=== PATIENT | female | born 2000 | race Caucasian/White ===

== ENCOUNTER 2021-08-25 22:19 | Observation (INO) | payer OTHER, MEDICAID ==
[2021-08-25] MEDS ORDERED: LORazepam 2 MG/ML VIAL IV ONE (22:41)
[2021-08-25] MEDS ORDERED: BUTALB/ACETAMINOPHEN/CAFFEINE TAB PO ONE (22:41)
[2021-08-25] MEDS ORDERED: SODIUM CHLORIDE 0.9% 1000 ML 1,000 ML IV ONE ×2 (22:41→22:42)
--- NOTE | 2021-08-25 22:46 | Emergency Department Report ---
HPI - General Chief Complaint: Headache Time Seen by Provider: 08/25/21 22:34 - HPI HPI: Room 20 Patient is a 21-year-old female present with a chief complaint of headache. Patient states her headache came on last night in the frontal region while at r est. Patient states that she took Tylenol but has not helped. Patient states she had episode of nausea vomiting. Patient states approximate 1 hour prior to arrival her hands began to "lock up." Patient denies dysuria or cough. Patient denies any preceding trauma. Patient currently gives her headache a score of 8/10 ED Past Medical Hx - Past Medical History Previous Medical History?: Yes Hx Asthma: Yes - Surgical History Past Surgical History?: No - Family History Family history: no significant - Social History Smoking Status: Never Smoker Substance Use Type: Alcohol (Rarely), Marijuana - Medications Home Medications: Home Medications Medication Instructions Recorded Confirmed Last Taken Type Cefuroxime Axetil [Ceftin] 500 mg PO Q12H #14 tablet 10/18/15 Unknown Rx HYDROcodone/APAP 5-325 [[place] 1 each PO Q6HR PRN #10 tablet 10/18/15 Unknown Rx 5/325] ED Review of Systems ROS: Stated complaint: HEADACHE Other details as noted in HPI Constitutional: denies: fever Eyes: denies: eye pain ENT: denies: throat pain Respiratory: no symptoms reported Cardiovascular: denies: chest pain Endocrine: no symptoms reported Gastrointestinal: nausea, vomiting Genitourinary: denies: dysuria Musculoskeletal: denies: back pain Neurological: headache Physical Exam - Physical Exam Vital Signs: Vital Signs 08/25/21 22:22 Temperature 98.0 F Pulse Rate 147 H Respiratory 20 Rate Blood Pressure 133/75 O2 Sat by Pulse 96 Oximetry Physical Exam: GENERAL: The patient is well-developed well-nourished female lying on stretcher not appearing to be in acute distress using cell phone. [] HEENT: Normocephalic. Atraumatic. Extraocular motions are intact. Patient has moist mucous membranes. NECK: Supple. Trachea midline CHEST/LUNGS: Clear to auscultation. There is no respiratory distress noted. HEART/CARDIOVASCULAR: Regular. There is tachycardia. There is no gallop rub or murmur. ABDOMEN: Abdomen is soft, nontender. Patient has normal bowel sounds. There is no abdominal distention. SKIN: There is no rash. There is no edema. There is no diaphoresis. NEURO: The patient is awake, alert, and oriented. The patient is cooperative. The patient has no focal neurologic deficits. The patient has normal speech. Cranial nerves II through XII grossly intact. GCS 15 MUSCULOSKELETAL:There is no evidence of acute injury. ED Course Vital Signs 08/25/21 22:22 Temperature 98.0 F Pulse Rate 147 H Respiratory 20 Rate Blood Pressure 133/75 O2 Sat by Pulse 96 Oximetry ED Medical Decision Making - Lab Data Result diagrams: 08/25/21 23:09 08/25/21 23:09 Laboratory Tests 08/25/21 08/25/21 08/25/21 23:09 23:09 23:09 WBC 9.1 RBC 4.53 Hgb 12.3 Hct 37.7 MCV 83 MCH 27 L MCHC 33 RDW 13.7 Plt Count 242 Add Manual Diff Complete Total Counted 100 Seg Neuts % (Manual) 89.0 H Band Neutrophils % 5.0 Lymphocytes % (Manual) 2.0 L Monocytes % (Manual) 4.0 Nucleated RBC % Not Reportable Seg Neutrophils # Man 8.1 H Band Neutrophils # 0.5 Lymphocytes # (Manual) 0.2 L Abs React Lymphs (Man) 0.0 Monocytes # (Manual) 0.4 Eosinophils # (Manual) 0.0 Basophils # (Manual) 0.0 Metamyelocytes # 0.0 Myelocytes # 0.0 Promyelocytes # 0.0 Blast Cells # 0.0 WBC Morphology Not Reportable Hypersegmented Neuts Not Reportable Hyposegmented Neuts Not Reportable Hypogranular Neuts Not Reportable Smudge Cells Not Reportable Toxic Granulation Not Reportable Toxic Vacuolation Not Reportable Dohle Bodies Not Reportable Pelger-Huet Anomaly Not Reportable Annalise Rods Not Reportable Platelet Estimate Consistent w auto Clumped Platelets Not Reportable Plt Clumps, EDTA Not Reportable Large Platelets Not Reportable Giant Platelets Not Reportable Platelet Satelliting Not Reportable Plt Morphology Comment Not Reportable RBC Morphology Normal Dimorphic RBCs Not Reportable Polychromasia Not Reportable Hypochromasia Not Reportable Poikilocytosis Not Reportable Anisocytosis Not Reportable Microcytosis Not Reportable Macrocytosis Not Reportable Spherocytes Not Reportable Pappenheimer Bodies Not Reportable Sickle Cells Not Reportable Target Cells Not Reportable Tear Drop Cells Not Reportable Ovalocytes Not Reportable Helmet Cells Not Reportable Lemon-Twining Bodies Not Reportable [place] Rings Not Reportable [place] Cells Not Reportable Bite Cells Not Reportable Crenated Cell Not Reportable Elliptocytes Not Reportable Acanthocytes (Spur) Not Reportable Rouleaux Not Reportable Hemoglobin C Crystals Not Reportable Schistocytes Not Reportable Malaria parasites Not Reportable Derek Bodies Not Reportable Hem Pathologist Commnt No D-Dimer 1196.97 H Sodium 137 Potassium 3.4 L Chloride 100.8 Carbon Dioxide 17 L Anion Gap 23 BUN 7 Creatinine 0.6 Estimated GFR > 60 BUN/Creatinine Ratio 12 Glucose 116 H Calcium 9.3 Total Bilirubin 0.20 AST 25 ALT 21 Alkaline Phosphatase 88 Total Creatine Kinase 83 CK-MB (CK-2) < 1.0 CK-MB (CK-2) Rel Index 1.2 Troponin T < 0.010 Total Protein 7.8 Albumin 4.1 Albumin/Globulin Ratio 1.1 TSH Free T4 HCG, Qual Urine Color Urine Turbidity Urine pH Ur Specific [place] Urine Protein Urine Glucose (UA) Urine Ketones Urine Blood Urine Nitrite Urine Bilirubin Urine Urobilinogen Ur Leukocyte Esterase Urine WBC (Auto) Urine RBC (Auto) U Epithel Cells (Auto) Urine Bacteria (Auto) Urine Mucus Urine Opiates Screen Urine Methadone Screen Ur Barbiturates Screen Ur Phencyclidine Scrn Ur Amphetamines Screen U Benzodiazepines Scrn Urine Cocaine Screen U Marijuana (THC) Screen Drugs of Abuse Note 08/25/21 08/25/21 08/26/21 23:09 23:09 02:00 WBC RBC Hgb Hct MCV MCH MCHC RDW Plt Count Add Manual Diff Total Counted Seg Neuts % (Manual) Band Neutrophils % Lymphocytes % (Manual) Monocytes % (Manual) Nucleated RBC % Seg Neutrophils # Man Band Neutrophils # Lymphocytes # (Manual) Abs React Lymphs (Man) Monocytes # (Manual) Eosinophils # (Manual) Basophils # (Manual) Metamyelocytes # Myelocytes # Promyelocytes # Blast Cells # WBC Morphology Hypersegmented Neuts Hyposegmented Neuts Hypogranular Neuts Smudge Cells Toxic Granulation Toxic Vacuolation Dohle Bodies Pelger-Huet Anomaly Annalise Rods Platelet Estimate Clumped Platelets Plt Clumps, EDTA Large Platelets Giant Platelets Platelet Satelliting Plt Morphology Comment RBC Morphology Dimorphic RBCs Polychromasia Hypochromasia Poikilocytosis Anisocytosis Microcytosis Macrocytosis Spherocytes Pappenheimer Bodies Sickle Cells Target Cells Tear Drop Cells Ovalocytes Helmet Cells Lemon-Twining Bodies Gary Rings [place] Cells Bite Cells Crenated Cell Elliptocytes Acanthocytes (Spur) Rouleaux Hemoglobin C Crystals Schistocytes Malaria parasites Derek Bodies Hem Pathologist Commnt D-Dimer Sodium Potassium Chloride Carbon Dioxide Anion Gap BUN Creatinine Estimated GFR BUN/Creatinine Ratio Glucose Calcium Total Bilirubin AST ALT Alkaline Phosphatase Total Creatine Kinase CK-MB (CK-2) CK-MB (CK-2) Rel Index Troponin T Total Protein Albumin Albumin/Globulin Ratio TSH 0.278 Free T4 1.39 HCG, Qual Negative Urine Color Yellow Urine Turbidity Slightly-cloudy Urine pH 6.0 Ur Specific [place] 1.032 H Urine Protein <15 mg/dl Urine Glucose (UA) Neg Urine Ketones 80 Urine Blood Neg Urine Nitrite Neg Urine Bilirubin Neg Urine Urobilinogen < 2.0 Ur Leukocyte Esterase Neg Urine WBC (Auto) 2.0 Urine RBC (Auto) 6.0 U Epithel Cells (Auto) 15.0 H Urine Bacteria (Auto) 1+ Urine Mucus Few Urine Opiates Screen Urine Methadone Screen Ur Barbiturates Screen Ur Phencyclidine Scrn Ur Amphetamines Screen U Benzodiazepines Scrn Urine Cocaine Screen U Marijuana (THC) Screen Drugs of Abuse Note 08/26/21 02:00 WBC RBC Hgb Hct MCV MCH MCHC RDW Plt Count Add Manual Diff Total Counted Seg Neuts % (Manual) Band Neutrophils % Lymphocytes % (Manual) Monocytes % (Manual) Nucleated RBC % Seg Neutrophils # Man Band Neutrophils # Lymphocytes # (Manual) Abs React Lymphs (Man) Monocytes # (Manual) Eosinophils # (Manual) Basophils # (Manual) Metamyelocytes # Myelocytes # Promyelocytes # Blast Cells # WBC Morphology Hypersegmented Neuts Hyposegmented Neuts Hypogranular Neuts Smudge Cells Toxic Granulation Toxic Vacuolation Dohle Bodies Pelger-Huet Anomaly Annalise Rods Platelet Estimate Clumped Platelets Plt Clumps, EDTA Large Platelets Giant Platelets Platelet Satelliting Plt Morphology Comment RBC Morphology Dimorphic RBCs Polychromasia Hypochromasia Poikilocytosis Anisocytosis Microcytosis Macrocytosis Spherocytes Pappenheimer Bodies Sickle Cells Target Cells Tear Drop Cells Ovalocytes Helmet Cells Lemon-Twining Bodies Gary Rings [place] Cells Bite Cells Crenated Cell Elliptocytes Acanthocytes (Spur) Rouleaux Hemoglobin C Crystals Schistocytes Malaria parasites Derek Bodies Hem Pathologist Commnt D-Dimer Sodium Potassium Chloride Carbon Dioxide Anion Gap BUN Creatinine Estimated GFR BUN/Creatinine Ratio Glucose Calcium Total Bilirubin AST ALT Alkaline Phosphatase Total Creatine Kinase CK-MB (CK-2) CK-MB (CK-2) Rel Index Troponin T Total Protein Albumin Albumin/Globulin Ratio TSH Free T4 HCG, Qual Urine Color Urine Turbidity Urine pH Ur Specific [place] Urine Protein Urine Glucose (UA) Urine Ketones Urine Blood Urine Nitrite Urine Bilirubin Urine Urobilinogen Ur Leukocyte Esterase Urine WBC (Auto) Urine RBC (Auto) U Epithel Cells (Auto) Urine Bacteria (Auto) Urine Mucus Urine Opiates Screen Presumptive negative Urine Methadone Screen Presumptive negative Ur Barbiturates Screen Presumptive positive Ur Phencyclidine Scrn Presumptive negative Ur Amphetamines Screen Presumptive negative U Benzodiazepines Scrn Presumptive negative Urine Cocaine Screen Presumptive negative U Marijuana (THC) Screen Presumptive positive Drugs of Abuse Note Disclamer - EKG Data -: EKG Interpreted by Oh EKG shows normal: sinus rhythm Rate: tachycardia (1 to 29 bpm) - EKG Data When compared to previous EKG there are: previous EKG unavailable Interpretation: nonspecific ST-T wave nadia - Radiology Data Radiology results: report reviewed (CT head, CTA chest), image reviewed (CT head, CTA chest) [facility] [address] [place] [address] Cat Scan Report Signed Patient: ANA ROSA THACKER MR#: [id number] : 2000 Acct:[id number] Age/Sex: 21 / F ADM Date: 08/25/21 Loc: ED Attending Dr: Ordering Physician: KASSY GORDON MD Date of Service: 08/25/21 Procedure(s): CT head/brain wo con Accession Number(s): [id number] cc: KASSY GORDON MD CT HEAD WITHOUT CONTRAST INDICATION / CLINICAL INFORMATION: Headache. TECHNIQUE: All CT scans at this location are performed using CT dose reduction for ALARA by means of automated exposure control. COMPARISON: None available. FINDINGS: HEMORRHAGE: None. EXTRA-AXIAL SPACES: Normal in size and morphology for the patient's age. VENTRICULAR SYSTEM: Normal in size and morphology for the patient's age. CEREBRAL PARENCHYMA: No significant abnormality. No acute territorial infarct. MIDLINE SHIFT / HERNIATION: None. CEREBELLUM / BRAINSTEM: No significant abnormality. ORBITS: Normal as visualized SOFT TISSUES: No significant abnormality. SKULL: No significant abnormality. PARANASAL SINUSES / MASTOID AIR CELLS: Normal as visualized ADDITIONAL FINDINGS: None. IMPRESSION: 1. No acute intracranial abnormality. Signer Name: Shai Nelson DO Signed: 08/25/2021 11:28 PM Workstation Name: [id number] Transcribed By: SILVIO Dictated By: SHAI NELSON DO Electronically Authenticated By: SHAI NELSON DO Signed Date/Time: 08/25/212327 DD/ 26 TD/TT: Print Cancel [facility] [address] [place] [address] Cat Scan Report Signed Patient: ANA ROSA THACKER MR#: [id number] : 2000 Acct:[id number] Age/Sex: 21 / F ADM Date: 08/25/21 Loc: ED Attending Dr: Ordering Physician: KASSY GORDON MD Date of Service: 08/25/21 Procedure(s): CT angio chest Accession Number(s): [id number] cc: KASSY GORDON MD CTA CHEST WITH CONTRAST INDICATION / CLINICAL INFORMATION: Tachycardia, elevated D-dimer. TECHNIQUE: Axial CT images were obtained through the chest after i njection of 100 cc of Omnipaque 350 IV contrast. 3 plane MIP and/or 3D reconstructions were produced. All CT scans at this location are performed using CT dose reduction for ALARA by means of automated exposure control. COMPARISON: None available. FINDINGS: PULMONARY ARTERIES: No pulmonary emboli. THORACIC AORTA: No significant abnormality. HEART: No significant abnormality. CORONARY ARTERY CALCIFICATION: None. MEDIASTINUM / CLYDE: No significant abnormality. PLEURA: No pleural effusion. No pneumothorax. LUNGS: No acute air space or interstitial disease. ADDITIONAL FINDINGS: None. UPPER ABDOMEN: No acute findings. SKELETAL STRUCTURES: No significant osseous abnormality. IMPRESSION: 1. No CT evidence for pulmonary embolism. 2. No acute findings. Signer Name: Shai Nelson DO Signed: 08/26/2021 1:39 AM Workstation Name: [id number] Transcribed By: SILVIO Dictated By: SHAI NELSON DO Electronically Authenticated By: SHAI NELSON DO Signed Date/Time: 08/26/21138 D D/ 6 TD/TT: Print Cancel - Medical Decision Making Patient persistently tachycardic despite IV fluids without a clear etiology. Will admit the patient to the hospital for further management - Differential Diagnosis Headache, anxiety, hyperthyroidism, dehydration, UTI, Critical care attestation.: If time is entered above; I have spent that time in minutes in the direct care of this critically ill patient, excluding procedure time. ED Disposition Clinical Impression: Tachycardia, Headache Disposition: ADMITTED INPATIENT Is pt being admited?: Yes Does the pt Need Aspirin: No Condition: Fair Time of Disposition: 03:38 (Hospitalist called (Dr Canela))
[2021-08-25 23:26] LABS: Hematocrit 37.7 % (30.3-42.9); Hemoglobin 12.3 gm/dl (10.1-14.3); Mean Corpuscular HGB Conc 33 % (30-34); Mean Corpuscular Volume 83 fl (79-97); Platelet Count 242 K/mm3 (140-440); Red Blood Count 4.53 M/mm3 (3.65-5.03); Red Cell Distribution Width 13.7 % (13.2-15.2)
--- NOTE | 2021-08-25 23:33 | Cat Scan Report ---
CT HEAD WITHOUT CONTRAST INDICATION / CLINICAL INFORMATION: Headache. TECHNIQUE: All CT scans at this location are performed using CT dose reduction for ALARA by means of automated exposure control. COMPARISON: None available. FINDINGS: HEMORRHAGE: None. EXTRA-AXIAL SPACES: Normal in size and morphology for the patient's age. VENTRICULAR SYSTEM: Normal in size and morphology for the patient's age. CEREBRAL PARENCHYMA: No significant abnormality. No acute territorial infarct. MIDLINE SHIFT / HERNIATION: None. CEREBELLUM / BRAINSTEM: No significant abnormality. ORBITS: Normal as visualized SOFT TISSUES: No significant abnormality. SKULL: No significant abnormality. PARANASAL SINUSES / MASTOID AIR CELLS: Normal as visualized ADDITIONAL FINDINGS: None. IMPRESSION: 1. No acute intracranial abnormality. Signer Name: Shai Almeida DO Signed: 08/25/2021 11:28 PM Workstation Name: [id number]
[2021-08-25 23:46] LABS: Alanine Aminotransferase 21 units/L (7-56); Albumin 4.1 g/dL (3.9-5); Blood Urea Nitrogen 7 mg/dL (7-17); Calcium 9.3 mg/dL (8.4-10.2); Hemolysis Index 4
[2021-08-26] LABS: BUN/Creatinine Ratio 12; Creatine Kinase MB < 1.0 ng/mL (0.0-4.0)
[2021-08-26 00:01] LABS: Band Neutrophils # (Manual) 0.5 K/mm3; Platelet Estimate Consistent w Auto; RBC Morphology Normal; Total Cells Counted 100
--- NOTE | 2021-08-26 01:43 | Cat Scan Report ---
CTA CHEST WITH CONTRAST INDICATION / CLINICAL INFORMATION: Tachycardia, elevated D-dimer. TECHNIQUE: Axial CT images were obtained through the chest after injection of 100 cc of Omnipaque 350 IV contrast. 3 plane MIP and/or 3D reconstructions were produced. All CT scans at this location are performed using CT dose reduction for ALARA by means of automated exposure control. COMPARISON: None available. FINDINGS: PULMONARY ARTERIES: No pulmonary emboli. THORACIC AORTA: No significant abnormality. HEART: No significant abnormality. CORONARY ARTERY CALCIFICATION: None. MEDIASTINUM / CLYDE: No significant abnormality. PLEURA: No pleural effusion. No pneumothorax. LUNGS: No acute air space or interstitial disease. ADDITIONAL FINDINGS: None. UPPER ABDOMEN: No acute findings. SKELETAL STRUCTURES: No significant osseous abnormality. IMPRESSION: 1. No CT evidence for pulmonary embolism. 2. No acute findings. Signer Name: Shai Almeida DO Signed: 08/26/2021 1:39 AM Workstation Name: [id number]
[2021-08-26 01:52] LABS: Free T4 (Free Thyroxine) 1.39 ng/dL (0.76-1.46)
[2021-08-26] MEDS ORDERED: SODIUM CHLORIDE 0.9% 1000 ML 1,000 ML IV ONE (01:57)
[2021-08-26 02:25] LABS: Bacteria,Urine 1+ /HPF (Negative); Bilirubin,Urine NEG (Negative); Blood,Urine NEG (Negative); Color,Urine Yellow (Yellow); Mucus,Urine FEW /HPF; Protein,Urine <15 mg/dL mg/dL (Negative); Urobilinogen,Urine < 2.0 mg/dL (<2.0)
[2021-08-26 02:30] LABS: Amphetamine Screen,Urine PRESUMPTIVE NEGATIVE; Benzodiazepines Screen,Urine PRESUMPTIVE NEGATIVE; Cannabinoid Screen,Urine PRESUMPTIVE POSITIVE; Cocaine Screen,Urine PRESUMPTIVE NEGATIVE; Methadone Screen,Urine PRESUMPTIVE NEGATIVE; Opiate Screen,Urine PRESUMPTIVE NEGATIVE
--- NOTE | 2021-08-26 08:15 | History and Physical Report ---
History of Present Illness Date of examination: 08/26/21 Date of admission: 08/26/21 04:04 Chief complaint: headache History of present illness: Patient is a 21-year-old female present with a chief complaint of headache. Patient states her headache came on last night in the frontal region while at rest. Patient states that she took Tylenol but has not helped. Patient states she had episode of nausea vomiting. Patient states approximate 1 hour prior to arrival her hands began to "lock up." Patient denies dysuria or cough. Patient denies any preceding trauma. Patient currently gives her headache a score of 8/10. Pt denies SOB or cough. No palpitations Past History Past Medical History: other (asthma) Past Surgical History: No surgical history Social history: no significant social history Family history: no significant family history Medications and Allergies Allergies Allergy/AdvReac Type Severity Reaction Status Date / Time No Known Allergies Allergy Verified 10/18/15 07:19 Home Medications Medication Instructions Recorded Confirmed Last Taken Type Cefuroxime Axetil [Ceftin] 500 mg PO Q12H #14 tablet 10/18/15 Unknown Rx HYDROcodone/APAP 5-325 [[place] 1 each PO Q6HR PRN #10 tablet 10/18/15 Unknown Rx 5/325] Review of Systems All systems: negative Exam - Constitutional Vitals: Temp Pulse Resp BP Pulse Ox 98.0 F 121 H 18 102/66 100 08/25/21 22:22 08/26/21 05:27 08/26/21 05:27 08/26/21 05:27 08/26/21 05:27 General appearance: Present: no acute distress, well-nourished - EENT Eyes: Present: PERRL ENT: hearing intact, clear oral mucosa - Neck Neck: Present: supple, normal ROM - Respiratory Respiratory effort: normal Respiratory: bilateral: CTA - Cardiovascular Heart Sounds: Present: S1 & S2. Absent: rub, click - Extremities Extremities: pulses symmetrical, No edema Peripheral Pulses: within normal limits - Abdominal General gastrointestinal: Present: soft, non-tender, non-distended, normal bowel sounds Female genitourinary: Present: normal - Integumentary Integumentary: Present: clear, warm, dry - Musculoskeletal Musculoskeletal: gait normal, strength equal bilaterally - Psychiatric Psychiatric: appropriate mood/affect, intact judgment & insight - Neurologic Neurologic: CNII-XII intact, moves all extremities HEART Score - HEART Score Troponin: Troponin T < 0.010 ng/mL (0.00-0.029) 08/25/21 23:09 Results - Labs CBC & Chem 7: 08/25/21 23:09 08/25/21 23:09 Labs: Laboratory Last Values WBC 9.1 K/mm3 (4.5-11.0) 08/25/21 23:09 RBC 4.53 M/mm3 (3.65-5.03) 08/25/21 23:09 Hgb 12.3 gm/dl (10.1-14.3) 08/25/21 23:09 Hct 37.7 % (30.3-42.9) 08/25/21 23:09 MCV 83 fl (79-97) 08/25/21 23:09 MCH 27 pg (28-32) L 08/25/21 23:09 MCHC 33 % (30-34) 08/25/21 23:09 RDW 13.7 % (13.2-15.2) 08/25/21 23:09 Plt Count 242 K/mm3 (140-440) 08/25/21 23:09 Add Manual Diff Complete 08/25/21 23:09 Total Counted 100 08/25/21 23:09 Seg Neuts % (Manual) 89.0 % (40.0-70.0) H 08/25/21 23:09 Band Neutrophils % 5.0 % 08/25/21 23:09 Lymphocytes % (Manual) 2.0 % (13.4-35.0) L 08/25/21 23:09 Monocytes % (Manual) 4.0 % (0.0-7.3) 08/25/21 23:09 Nucleated RBC % Not Reportable 08/25/21 23:09 Seg Neutrophils # Man 8.1 K/mm3 (1.8-7.7) H 08/25/21 23:09 Band Neutrophils # 0.5 K/mm3 08/25/21 23:09 Lymphocytes # (Manual) 0.2 K/mm3 (1.2-5.4) L 08/25/21 23:09 Abs React Lymphs (Man) 0.0 K/mm3 08/25/21 23:09 Monocytes # (Manual) 0.4 K/mm3 (0.0-0.8) 08/25/21 23:09 Eosinophils # (Manual) 0.0 K/mm3 (0.0-0.4) 08/25/21 23:09 Basophils # (Manual) 0.0 K/mm3 (0.0-0.1) 08/25/21 23:09 Metamyelocytes # 0.0 K/mm3 08/25/21 23:09 Myelocytes # 0.0 K/mm3 08/25/21 23:09 Promyelocytes # 0.0 K/mm3 08/25/21 23:09 Blast Cells # 0.0 K/mm3 08/25/21 23:09 WBC Morphology Not Reportable 08/25/21 23:09 Hypersegmented Neuts Not Reportable 08/25/21 23:09 Hyposegmented Neuts Not Reportable 08/25/21 23:09 Hypogranular Neuts Not Reportable 08/25/21 23:09 Smudge Cells Not Reportable 08/25/21 23:09 Toxic Granulation Not Reportable 08/25/21 23:09 Toxic Vacuolation Not Reportable 08/25/21 23:09 Dohle Bodies Not Reportable 08/25/21 23:09 Pelger-Huet Anomaly Not Reportable 08/25/21 23:09 Annalise Rods Not Reportable 08/25/21 23:09 Platelet Estimate Consistent w auto 08/25/21 23:09 Clumped Platelets Not Reportable 08/25/21 23:09 Plt Clumps, EDTA Not Reportable 08/25/21 23:09 Large Platelets Not Reportable 08/25/21 23:09 Giant Platelets Not Reportable 08/25/21 23:09 Platelet Satelliting Not Reportable 08/25/21 23:09 Plt Morphology Comment Not Reportable 08/25/21 23:09 RBC Morphology Normal 08/25/21 23:09 Dimorphic RBCs Not Reportable 08/25/21 23:09 Polychromasia Not Reportable 08/25/21 23:09 Hypochromasia Not Reportable 08/25/21 23:09 Poikilocytosis Not Reportable 08/25/21 23:09 Anisocytosis Not Reportable 08/25/21 23:09 Microcytosis Not Reportable 08/25/21 23:09 Macrocytosis Not Reportable 08/25/21 23:09 Spherocytes Not Reportable 08/25/21 23:09 Pappenheimer Bodies Not Reportable 08/25/21 23:09 Sickle Cells Not Reportable 08/25/21 23:09 Target Cells Not Reportable 08/25/21 23:09 Tear Drop Cells Not Reportable 08/25/21 23:09 Ovalocytes Not Reportable 08/25/21 23:09 Helmet Cells Not Reportable 08/25/21 23:09 Lemon-Tolstoy Bodies Not Reportable 08/25/21 23:09 Leonardo Rings Not Reportable 08/25/21 23:09 Lorraine Cells Not Reportable 08/25/21 23:09 Bite Cells Not Reportable 08/25/21 23:09 Crenated Cell Not Reportable 08/25/21 23:09 Elliptocytes Not Reportable 08/25/21 23:09 Acanthocytes (Spur) Not Reportable 08/25/21 23:09 Rouleaux Not Reportable 08/25/21 23:09 Hemoglobin C Crystals Not Reportable 08/25/21 23:09 Schistocytes Not Reportable 08/25/21 23:09 Malaria parasites Not Reportable 08/25/21 23:09 Derek Bodies Not Reportable 08/25/21 23:09 Hem Pathologist Commnt No 08/25/21 23:09 D-Dimer 1196.97 ng/mlDDU (0-234) H 08/25/21 23:09 Sodium 137 mmol/L (137-145) 08/25/21 23:09 Potassium 3.4 mmol/L (3.6-5.0) L 08/25/21 23:09 Chloride 100.8 mmol/L (98-107) 08/25/21 23:09 Carbon Dioxide 17 mmol/L (22-30) L 08/25/21 23:09 Anion Gap 23 mmol/L 08/25/21 23:09 BUN 7 mg/dL (7-17) 08/25/21 23:09 Creatinine 0.6 mg/dL (0.6-1.2) 08/25/21 23:09 Estimated GFR > 60 ml/min 08/25/21 23:09 BUN/Creatinine Ratio 12 % 08/25/21 23:09 Glucose 116 mg/dL (65-100) H 08/25/21 23:09 Calcium 9.3 mg/dL (8.4-10.2) 08/25/21 23:09 Total Bilirubin 0.20 mg/dL (0.1-1.2) 08/25/21 23:09 AST 25 units/L (5-40) 08/25/21 23:09 ALT 21 units/L (7-56) 08/25/21 23:09 Alkaline Phosphatase 88 units/L (35-129) 08/25/21 23:09 Total Creatine Kinase 83 units/L (30-135) 08/25/21 23:09 CK-MB (CK-2) < 1.0 ng/mL (0.0-4.0) 08/25/21 23:09 CK-MB (CK-2) Rel Index 1.2 (0-4) 08/25/21 23:09 Troponin T < 0.010 ng/mL (0.00-0.029) 08/25/21 23:09 Total Protein 7.8 g/dL (6.3-8.2) 08/25/21 23:09 Albumin 4.1 g/dL (3.9-5) 08/25/21 23:09 Albumin/Globulin Ratio 1.1 % 08/25/21 23:09 TSH 0.278 mlU/mL (0.270-4.200) 08/25/21 23:09 Free T4 1.39 ng/dL (0.76-1.46) 08/25/21 23:09 HCG, Qual Negative (Negative) 08/25/21 23:09 Urine Color Yellow (Yellow) 08/26/21 02:00 Urine Turbidity Slightly-cloudy (Clear) 08/26/21 02:00 Urine pH 6.0 (5.0-7.0) 08/26/21 02:00 Ur Specific [place] 1.032 (1.003-1.030) H 08/26/21 02:00 Urine Protein <15 mg/dl mg/dL (Negative) 08/26/21 02:00 Urine Glucose (UA) Neg mg/dL (Negative) 08/26/21 02:00 Urine Ketones 80 mg/dL (Negative) 08/26/21 02:00 Urine Blood Neg (Negative) 08/26/21 02:00 Urine Nitrite Neg (Negative) 08/26/21 02:00 Urine Bilirubin Neg (Negative) 08/26/21 02:00 Urine Urobilinogen < 2.0 mg/dL (<2.0) 08/26/21 02:00 Ur Leukocyte Esterase Neg (Negative) 08/26/21 02:00 Urine WBC (Auto) 2.0 /HPF (0.0-6.0) 08/26/21 02:00 Urine RBC (Auto) 6.0 /HPF (0.0-6.0) 08/26/21 02:00 U Epithel Cells (Auto) 15.0 /HPF (0-13.0) H 08/26/21 02:00 Urine Bacteria (Auto) 1+ /HPF (Negative) 08/26/21 02:00 Urine Mucus Few /HPF 08/26/21 02:00 Urine Opiates Screen Presumptive negative 08/26/21 02:00 Urine Methadone Screen Presumptive negative 08/26/21 02:00 Ur Barbiturates Screen Presumptive positive 08/26/21 02:00 Ur Phencyclidine Scrn Presumptive negative 08/26/21 02:00 Ur Amphetamines Screen Presumptive negative 08/26/21 02:00 U Benzodiazepines Scrn Presumptive negative 08/26/21 02:00 Urine Cocaine Screen Presumptive negative 08/26/21 02:00 U Marijuana (THC) Screen Presumptive positive 08/26/21 02:00 Drugs of Abuse Note Disclamer 08/26/21 02:00 Assessment and Plan Assessment and plan: Persistent tachycardia. Asthma. Compensated. 08/26/21. The patient will be admitted to telemetry for close monitoring. Cardiology consultation. Check echocardiogram. TSH normal. D-dimer elevated but CTA negative.
[2021-08-26] MEDS ORDERED: MORPHINE 4 MG/1 ML INJ IV PRN (08:16)
[2021-08-26] MEDS ORDERED: SODIUM CHLORIDE 0.9% 1000 ML 1,000 ML IV SCH (08:30)
[2021-08-26] MEDS ORDERED: ACETAMINOPHEN 325 MG TAB PO PRN (09:00)
[2021-08-26] MEDS ORDERED: MORPHINE 2 MG/1 ML INJ IV PRN (09:00)
[2021-08-26] MEDS: ONDANSETRON 4 MG/2 ML INJ IV PRN ×2 (11:12→21:00)
[2021-08-26] MEDS: HEPARIN 5,000 UNIT/1 ML VIAL SUB-Q SCH ×3 (11:13→23:28)
--- NOTE | 2021-08-26 13:25 | Consultation ---
History of Present Illness Consult date: 08/26/21 Consult reason: tachycardia History of present illness: 21-year-old -[place] female presenting to the emergency room for the evaluation and management of headache. CT head revealing no acute process. During evaluation patient was noted to be tachycardic with EKG showing sinus tachycardia that did not respond to IV fluids. Patient was therefore admitted for further evaluation. Cardiology consult was requested. Patient denies any chest pain or shortness of breath. Patient denies any syncope or palpitations. No prior history of cardiac disease. Patient admits marijuana use. CTA chest this admission revealing no evidence of pulmonary embolism. Thyroid function tests are normal. Troponin is normal. Past History Past Medical History: other (asthma) Past Surgical History: No surgical history Social history: no significant social history Family history: no significant family history Medications and Allergies Allergies Allergy/AdvReac Type Severity Reaction Status Date / Time No Known Allergies Allergy Verified 10/18/15 07:19 Home Medications Medication Instructions Recorded Confirmed Last Taken Type Cefuroxime Axetil [Ceftin] 500 mg PO Q12H #14 tablet 10/18/15 Unknown Rx HYDROcodone/APAP 5-325 [[place] 1 each PO Q6HR PRN #10 tablet 10/18/15 Unknown Rx 5/325] Active Meds: Active Medications Acetaminophen (Acetaminophen 325 Mg Tab) 650 mg PO Q4H PRN PRN Reason: Pain MILD(1-3)/Fever >100.5/TRINH Hydrocodone Bitart/Acetaminophen (Hydrocodone/Acetaminophen 5-325 Mg Tab) 2 e ach PO Q6H PRN PRN Reason: Pain, Moderate (4-6) Heparin Sodium (Porcine) (Heparin 5,000 Unit/1 Ml Vial) 5,000 unit SUB-Q Q8HR CLEM Last Admin: 08/26/21 11:13 Dose: 5,000 unit Documented by: Sodium Chloride (Nacl 0.9% 1000 Ml) 1,000 mls @ 75 mls/hr IV DIRECT CLEM Morphine Sulfate (Morphine 2 Mg/1 Ml Inj) 2 mg IV Q4H PRN PRN Reason: Pain , Severe (7-10) Ondansetron HCl (Ondansetron 4 Mg/2 Ml Inj) 4 mg IV Q8H PRN PRN Reason: Nausea And Vomiting Last Admin: 08/26/21 11:12 Dose: 4 mg Documented by: Sodium Chloride (Sodium Chloride 0.9% 10 Ml Flush Syringe) 10 ml IV BID CLEM Last Admin: 08/26/21 11:13 Dose: 10 ml Documented by: Sodium Chloride (Sodium Chloride 0.9% 10 Ml Flush Syringe) 10 ml IV PRN PRN PRN Reason: LINE FLUSH Review of Systems All systems: negative Physical Examination Vital Signs Temp Pulse Resp BP Pulse Ox 98.0 F 147 H 20 133/75 96 08/25/21 22:22 08/25/21 22:22 08/25/21 22:22 08/25/21 22:22 08/25/21 22:22 General appearance: no acute distress HEENT: Positive: PERRL Neck: Positive: neck supple Cardiac: Positive: Regular Rate, Tachycardia Lungs: Positive: Normal Exam Neuro: Positive: Grossly Intact Abdomen: Positive: Soft Extremities: Absent: edema Results 08/25/21 23:09 08/25/21 23:09 Cardiac Enzymes 08/25/21 Range/Units 23:09 AST 25 (5-40) units/L CK-MB (CK-2) < 1.0 (0.0-4.0) ng/mL CBC 08/25/21 Range/Units 23:09 WBC 9.1 (4.5-11.0) K/mm3 RBC 4.53 (3.65-5.03) M/mm3 Hgb 12.3 (10.1-14.3) gm/dl Hct 37.7 (30.3-42.9) % Plt Count 242 (140-440) K/mm3 Comprehensive Metabolic Panel 08/25/21 Range/Units 23:09 Sodium 137 (137-145) mmol/L Potassium 3.4 L (3.6-5.0) mmol/L Chloride 100.8 (98-107) mmol/L Carbon Dioxide 17 L (22-30) mmol/L BUN 7 (7-17) mg/dL Creatinine 0.6 (0.6-1.2) mg/dL Glucose 116 H (65-100) mg/dL Calcium 9.3 (8.4-10.2) mg/dL AST 25 (5-40) units/L ALT 21 (7-56) units/L Alkaline Phosphatase 88 (35-129) units/L Total Protein 7.8 (6.3-8.2) g/dL Albumin 4.1 (3.9-5) g/dL - EKG Interpretation EKG shows: tachycardia EKG interpretations - Telemetry EKG Rhythm: Sinus Tachycardia Assessment and Plan Asymptomatic sinus tachycardia likely due to use of marijuana. Headache reason for admission. Recommendations: Patient advised increased water ingestion. Patient advised marijuana abstinence. Patient can follow-up with [facility] as outpatient.
[2021-08-26] MEDS: HYDROcodone/ACETAMINOPHEN 5-325 MG TAB PO PRN (20:59)
[2021-08-26] MEDS ORDERED: ZOLPIDEM 5 MG TAB PO ONE (23:27)
[2021-08-27] MEDS: HEPARIN 5,000 UNIT/1 ML VIAL SUB-Q SCH ×3 (05:50→22:37)
[2021-08-27 07:19] LABS: Hematocrit 40.7 % (30.3-42.9); Hemoglobin 12.7 gm/dl (10.1-14.3); Mean Corpuscular HGB Conc 31 % (30-34); Mean Corpuscular Volume 85 fl (79-97); Platelet Count 232 K/mm3 (140-440); Red Blood Count 4.81 M/mm3 (3.65-5.03)
[2021-08-27 07:36] LABS: Blood Urea Nitrogen 6 mg/dL (7-17); Calcium 8.6 mg/dL (8.4-10.2); Hemolysis Index 4
[2021-08-27 07:37] LABS: BUN/Creatinine Ratio 12
--- NOTE | 2021-08-27 10:34 | Progress Note ---
Assessment and Plan Assessment and plan: Persistent tachycardia. Asthma. Compensated. 08/26/21. The patient will be admitted to telemetry for close monitoring. Cardiology consultation. Check echocardiogram. TSH normal. D-dimer elevated b ut CTA negative. 08/27/2021. Patient still with tachycardia with HR in the 120s. Patient also with episode of N/V x1 this morning. Cardiology reports patient with asymptomatic sinus tachycardia is likely secondary to marijuana use. We will continue IV fluids for now and anticipate discharge later today or in a.m. Echocardiogram revealed left ventricular size and function to be normal with primitivo rderline concentric left ventricular hypertrophy. EF 55% History Interval history: No new issues overnight. Hospitalist Physical - Constitutional Vitals: Temp Pulse Resp BP Pulse Ox 98.0 F 102 H 18 125/75 98 08/25/21 22:22 08/27/21 05:58 08/27/21 05:58 08/27/21 05:58 08/27/21 05:58 General appearance: Present: no acute distress - EENT Eyes: Present: PERRL, EOM intact ENT: hearing intact, clear oral mucosa, dentition normal - Neck Neck: Present: supple, normal ROM - Respiratory Respiratory effort: normal Respiratory: bilateral: CTA - Cardiovascular Rhythm: regular Heart Sounds: Present: S1 & S2. Absent: gallop, rub - Extremities Extremities: no ischemia, No edema, Full ROM - Abdominal General gastrointestinal: soft, non-tender, non-distended, normal bowel sounds - Integumentary Integumentary: Present: clear, warm, dry - Neurologic Neurologic: CNII-XII intact, moves all extremities HEART Score - HEART Score Troponin: Troponin T < 0.010 ng/mL (0.00-0.029) 08/25/21 23:09 Results - Labs CBC & Chem 7: 08/27/21 06:47 08/27/21 06:47 Labs: Laboratory Last Values WBC 3.4 K/mm3 (4.5-11.0) L 08/27/21 06:47 RBC 4.81 M/mm3 (3.65-5.03) 08/27/21 06:47 Hgb 12.7 gm/dl (10.1-14.3) 08/27/21 06:47 Hct 40.7 % (30.3-42.9) 08/27/21 06:47 MCV 85 fl (79-97) 08/27/21 06:47 MCH 27 pg (28-32) L 08/27/21 06:47 MCHC 31 % (30-34) 08/27/21 06:47 RDW 14.0 % (13.2-15.2) 08/27/21 06:47 Plt Count 232 K/mm3 (140-440) 08/27/21 06:47 [place] % (Auto) Applied Psychology Professor 08/27/21 06:47 Add Manual Diff Complete 08/25/21 23:09 Total Counted 100 08/25/21 23:09 Seg Neutrophils % Applied Psychology Professor 08/27/21 06:47 Seg Neuts % (Manual) 89.0 % (40.0-70.0) H 08/25/21 23:09 Band Neutrophils % 5.0 % 08/25/21 23:09 Lymphocytes % (Manual) 2.0 % (13.4-35.0) L 08/25/21 23:09 Monocytes % (Manual) 4.0 % (0.0-7.3) 08/25/21 23:09 Nucleated RBC % Not Reportable 08/25/21 23:09 Seg Neutrophils # Man 8.1 K/mm3 (1.8-7.7) H 08/25/21 23:09 Band Neutrophils # 0.5 K/mm3 08/25/21 23:09 Lymphocytes # (Manual) 0.2 K/mm3 (1.2-5.4) L 08/25/21 23:09 Abs React Lymphs (Man) 0.0 K/mm3 08/25/21 23:09 Monocytes # (Manual) 0.4 K/mm3 (0.0-0.8) 08/25/21 23:09 Eosinophils # (Manual) 0.0 K/mm3 (0.0-0.4) 08/25/21 23:09 Basophils # (Manual) 0.0 K/mm3 (0.0-0.1) 08/25/21 23:09 Metamyelocytes # 0.0 K/mm3 08/25/21 23:09 Myelocytes # 0.0 K/mm3 08/25/21 23:09 Promyelocytes # 0.0 K/mm3 08/25/21 23:09 Blast Cells # 0.0 K/mm3 08/25/21 23:09 WBC Morphology Not Reportable 08/25/21 23:09 Hypersegmented Neuts Not Reportable 08/25/21 23:09 Hyposegmented Neuts Not Reportable 08/25/21 23:09 Hypogranular Neuts Not Reportable 08/25/21 23:09 Smudge Cells Not Reportable 08/25/21 23:09 Toxic Granulation Not Reportable 08/25/21 23:09 Toxic Vacuolation Not Reportable 08/25/21 23:09 Dohle Bodies Not Reportable 08/25/21 23:09 Pelger-Huet Anomaly Not Reportable 08/25/21 23:09 Annalise Rods Not Reportable 08/25/21 23:09 Platelet Estimate Consistent w auto 08/25/21 23:09 Clumped Platelets Not Reportable 08/25/21 23:09 Plt Clumps, EDTA Not Reportable 08/25/21 23:09 Large Platelets Not Reportable 08/25/21 23:09 Giant Platelets Not Reportable 08/25/21 23:09 Platelet Satelliting Not Reportable 08/25/21 23:09 Plt Morphology Comment Not Reportable 08/25/21 23:09 RBC Morphology Normal 08/25/21 23:09 Dimorphic RBCs Not Reportable 08/25/21 23:09 Polychromasia Not Reportable 08/25/21 23:09 Hypochromasia Not Reportable 08/25/21 23:09 Poikilocytosis Not Reportable 08/25/21 23:09 Anisocytosis Not Reportable 08/25/21 23:09 Microcytosis Not Reportable 08/25/21 23:09 Macrocytosis Not Reportable 08/25/21 23:09 Spherocytes Not Reportable 08/25/21 23:09 Pappenheimer Bodies Not Reportable 08/25/21 23:09 Sickle Cells Not Reportable 08/25/21 23:09 Target Cells Not Reportable 08/25/21 23:09 Tear Drop Cells Not Reportable 08/25/21 23:09 Ovalocytes Not Reportable 08/25/21 23:09 Helmet Cells Not Reportable 08/25/21 23:09 Lemon-Altha Bodies Not Reportable 08/25/21 23:09 [place] Rings Not Reportable 08/25/21 23:09 Lorraine Cells Not Reportable 08/25/21 23:09 Bite Cells Not Reportable 08/25/21 23:09 Crenated Cell Not Reportable 08/25/21 23:09 Elliptocytes Not Reportable 08/25/21 23:09 Acanthocytes (Spur) Not Reportable 08/25/21 23:09 Rouleaux Not Reportable 08/25/21 23:09 Hemoglobin C Crystals Not Reportable 08/25/21 23:09 Schistocytes Not Reportable 08/25/21 23:09 Malaria parasites Not Reportable 08/25/21 23:09 Derek Bodies Not Reportable 08/25/21 23:09 Hem Pathologist Commnt No 08/25/21 23:09 D-Dimer 1196.97 ng/mlDDU (0-234) H 08/25/21 23:09 Sodium 137 mmol/L (137-145) 08/27/21 06:47 Potassium 4.0 mmol/L (3.6-5.0) 08/27/21 06:47 Chloride 99.0 mmol/L (98-107) 08/27/21 06:47 Carbon Dioxide 23 mmol/L (22-30) 08/27/21 06:47 Anion Gap 19 mmol/L 08/27/21 06:47 BUN 6 mg/dL (7-17) L 08/27/21 06:47 Creatinine 0.5 mg/dL (0.6-1.2) L 08/27/21 06:47 Estimated GFR > 60 ml/min 08/27/21 06:47 BUN/Creatinine Ratio 12 % 08/27/21 06:47 Glucose 71 mg/dL (65-100) 08/27/21 06:47 Calcium 8.6 mg/dL (8.4-10.2) 08/27/21 06:47 Total Bilirubin 0.20 mg/dL (0.1-1.2) 08/25/21 23:09 AST 25 units/L (5-40) 08/25/21 23:09 ALT 21 units/L (7-56) 08/25/21 23:09 Alkaline Phosphatase 88 units/L (35-129) 08/25/21 23:09 Total Creatine Kinase 83 units/L (30-135) 08/25/21 23:09 CK-MB (CK-2) < 1.0 ng/mL (0.0-4.0) 08/25/21 23:09 CK-MB (CK-2) Rel Index 1.2 (0-4) 08/25/21 23:09 Troponin T < 0.010 ng/mL (0.00-0.029) 08/25/21 23:09 Total Protein 7.8 g/dL (6.3-8.2) 08/25/21 23:09 Albumin 4.1 g/dL (3.9-5) 08/25/21 23:09 Albumin/Globulin Ratio 1.1 % 08/25/21 23:09 TSH 0.278 mlU/mL (0.270-4.200) 08/25/21 23:09 Free T4 1.39 ng/dL (0.76-1.46) 08/25/21 23:09 HCG, Qual Negative (Negative) 08/25/21 23:09 Urine Color Yellow (Yellow) 08/26/21 02:00 Urine Turbidity Slightly-cloudy (Clear) 08/26/21 02:00 Urine pH 6.0 (5.0-7.0) 08/26/21 02:00 Ur Specific [place] 1.032 (1.003-1.030) H 08/26/21 02:00 Urine Protein <15 mg/dl mg/dL (Negative) 08/26/21 02:00 Urine Glucose (UA) Neg mg/dL (Negative) 08/26/21 02:00 Urine Ketones 80 mg/dL (Negative) 08/26/21 02:00 Urine Blood Neg (Negative) 08/26/21 02:00 Urine Nitrite Neg (Negative) 08/26/21 02:00 Urine Bilirubin Neg (Negative) 08/26/21 02:00 Urine Urobilinogen < 2.0 mg/dL (<2.0) 08/26/21 02:00 Ur Leukocyte Esterase Neg (Negative) 08/26/21 02:00 Urine WBC (Auto) 2.0 /HPF (0.0-6.0) 08/26/21 02:00 Urine RBC (Auto) 6.0 /HPF (0.0-6.0) 08/26/21 02:00 U Epithel Cells (Auto) 15.0 /HPF (0-13.0) H 08/26/21 02:00 Urine Bacteria (Auto) 1+ /HPF (Negative) 08/26/21 02:00 Urine Mucus Few /HPF 08/26/21 02:00 Urine Opiates Screen Presumptive negative 08/26/21 02:00 Urine Methadone Screen Presumptive negative 08/26/21 02:00 Ur Barbiturates Screen Presumptive positive 08/26/21 02:00 Ur Phencyclidine Scrn Presumptive negative 08/26/21 02:00 Ur Amphetamines Screen Presumptive negative 08/26/21 02:00 U Benzodiazepines Scrn Presumptive negative 08/26/21 02:00 Urine Cocaine Screen Presumptive negative 08/26/21 02:00 U Marijuana (THC) Screen Presumptive positive 08/26/21 02:00 Drugs of Abuse Note Disclamer 08/26/21 02:00 Active Medications - Current Medications Current Medications: Generic Name Dose Route Start Last Admin Trade Name Freq PRN Reason Stop Dose Admin Acetaminophen 650 mg 08/26/21 09:00 Acetaminophen 325 Mg Tab PO Q4H PRN Pain MILD(1-3)/Fever >100.5/TRINH Hydrocodone Bitart/Acetaminophen 2 each 08/26/21 09:00 08/26/21 20:59 Hydrocodone/Acetaminophen 5-325 Mg Tab PO 2 each Q6H PRN Administration Pain, Moderate (4-6) Heparin Sodium (Porcine) 5,000 unit 08/26/21 09:00 08/27/21 05:50 Heparin 5,000 Unit/1 Ml Vial SUB-Q Not Given Q8HR CLEM Sodium Chloride 1,000 mls @ 75 mls/hr 08/26/21 08:30 Nacl 0.9% 1000 Ml IV DIRECT CLEM Morphine Sulfate 2 mg 08/26/21 09:00 Morphine 2 Mg/1 Ml Inj IV Q4H PRN Pain , Severe (7-10) Ondansetron HCl 4 mg 08/26/21 09:00 08/26/21 21:00 Ondansetron 4 Mg/2 Ml Inj IV 4 mg Q8H PRN Administration Nausea And Vomiting Sodium Chloride 10 ml 08/26/21 10:00 08/26/21 23:28 Sodium Chloride 0.9% 10 Ml Flush Syringe IV 10 ml BID CLEM Administration Sodium Chloride 10 ml 08/26/21 09:00 Sodium Chloride 0.9% 10 Ml Flush Syringe IV PRN PRN LINE FLUSH
--- NOTE | 2021-08-27 10:50 | Electrocardiograph Report ---
Test Date: 2021-08-26 Test Time: 00:22:14 Pat Name: ANA ROSA THACKER Department: Room: [place] [address] Gender: F Chute Loader: NISA : 2000 Requested By: KASSY GORDON Order Number: [id number] Reading MD: Kailee Lucero Measurements Intervals [place] Rate: 129 P: 52 [place]: 154 QRS: 48 QRSD: 83 T: -26 QT: 347 QTc: 509 Interpretive Statements Sinus tachycardia Borderline T abnormalities, diffuse leads Prolonged QT interval No previous ECG available for comparison Electronically Signed On 08-27-2021 10:50:28 EST by Kailee Lucero
[2021-08-27 10:52] LABS: Band Neutrophils # (Manual) 0.1 K/mm3; Total Cells Counted 100
[2021-08-27 10:53] LABS: Platelet Estimate Consistent w Auto; Tear Drop Cells Few
[2021-08-27] MEDS: HYDROcodone/ACETAMINOPHEN 5-325 MG TAB PO PRN (11:09)
--- NOTE | 2021-08-27 11:54 | Progress Note ---
Assessment and Plan - Patient Problems (1) Tachycardia Current Visit: Yes Status: Acute Plan to address problem: 21-year-old woman with physiologic sinus tachycardia associated with anxiety, headache and pain on presentation. No further cardiac work-up is indicated for physiologic sinus tachycardia which has resolved. We will sign off. Subjective Date of service: 08/27/21 Interval history: Patient is comfortable, no cardiac complaints. This is a 21-year-old female who presented to the emergency room, very anxious, complaining of headache and stiffness and immobility of the fingers. On her presentation, there was a sinus tachycardia, with emergency room EKG is sinus tachycardia 129. The sinus rate has since slowed, currently 96 since patient's anxiety and pain have resolved. There is otherwise no prior cardiac history. Objective Vital Signs Pulse Resp BP Pulse Ox 08/27/21 11:09 14 08/27/21 05:58 102 H 18 125/75 98 08/27/21 01:53 98 H 18 116/78 98 08/26/21 21:00 98 08/26/21 20:00 86 18 114/75 100 - Physical Examination General: Appears Well, No Apparent Distress HEENT: Positive: PERRL Neck: Positive: neck supple Cardiac: Positive: Reg Rate and Rhythm Lungs: Positive: clear to auscultation Neuro: Positive: Grossly Intact Abdomen: Positive: Soft Skin: Positive: Clear Extremities: Absent: edema - Labs and Meds CBC 08/27/21 Range/Units 06:47 WBC 3.4 L (4.5-11.0) K/mm3 RBC 4.81 (3.65-5.03) M/mm3 Hgb 12.7 (10.1-14.3) gm/dl Hct 40.7 (30.3-42.9) % Plt Count 232 (140-440) K/mm3 Comprehensive Metabolic Panel 08/27/21 Range/Units 06:47 Sodium 137 (137-145) mmol/L Potassium 4.0 (3.6-5.0) mmol/L Chloride 99.0 (98-107) mmol/L Carbon Dioxide 23 (22-30) mmol/L BUN 6 L (7-17) mg/dL Creatinine 0.5 L (0.6-1.2) mg/dL Glucose 71 (65-100) mg/dL Calcium 8.6 (8.4-10.2) mg/dL
[2021-08-28] MEDS: HEPARIN 5,000 UNIT/1 ML VIAL SUB-Q SCH (06:48)
[2021-08-28] MEDS: ONDANSETRON 4 MG/2 ML INJ IV PRN (07:01)
[2021-08-28 08:04] VITALS: BP 108/70
--- NOTE | 2021-08-28 08:48 | Discharge Summary ---
Providers - Providers Date of Admission: 08/26/21 04:04 Date of discharge: 08/28/21 Attending physician: RU COHN 08/26/21 08:16 Consult to Physician [CONS] Routine Comment: Consulting Provider: FREDDY MURRAY Physician Instructions: Reason For Exam: persistent tachycardia Primary care physician: COMMUTATOR PRESSER Hospitalization Condition: Good Pertinent studies: Negative CTA no embolism. Normal echocardiogram. Hospital course: Patient 21 years old originally presented with headache and persistent tachycardia. Patient had anxiety and was also using marijuana. Once patient calm down and up to being evaluated by cardiology symptoms resolved. And patient was no longer tachycardic with stable for transfer had been cleared by cardiology. Patient had negative CTA and unremarkable echocardiogram Disposition: 01 HOME / SELF CARE / HOMELESS Final Discharge Diagnosis (Prints w/discharge instructions): Tachycardia - Discharge Diagnoses (1) Headache Status: Acute Comment: Resolved secondary to anxiety tachycardia. (2) Tachycardia Status: Acute Comment: Resolved cleared by cardiology. Core Measure Documentation - Palliative Care Palliative Care/ Comfort Measures: Not Applicable - Core Measures Any of the following diagnoses?: none Exam - Constitutional Vitals: Temp Pulse Resp BP Pulse Ox 98.5 F 91 H 18 108/70 98 08/28/21 08:02 08/28/21 08:02 08/28/21 08:02 08/28/21 08:02 08/28/21 08:02 General appearance: Present: no acute distress, well-nourished - EENT Eyes: Present: PERRL ENT: hearing intact, clear oral mucosa - Neck Neck: Present: supple, normal ROM - Respiratory Respiratory effort: normal Respiratory: bilateral: CTA - Cardiovascular Heart Sounds: Present: S1 & S2. Absent: rub, click - Extremities Extremities: pulses symmetrical, No edema Peripheral Pulses: within normal limits - Abdominal General gastrointestinal: Present: soft, non-tender, non-distended, normal bowel sounds Female genitourinary: Present: normal - Integumentary Integumentary: Present: clear, warm, dry - Musculoskeletal Musculoskeletal: gait normal, strength equal bilaterally - Psychiatric Psychiatric: appropriate mood/affect, intact judgment & insight - Neurologic Neurologic: CNII-XII intact, moves all extremities Plan Activity: no restrictions Diet: regular, other (No marijuana) Follow up with: PRIMARY CARE, [Primary Care Provider] - 3-5 Days Prescriptions: HYDROcodone/APAP 5-325 [[place] 5-325 mg TAB] 2 each PO Q6H PRN #14 tablet PRN Reason: Pain, Moderate (4-6)
[2021-08-28] MEDS: HYDROcodone/ACETAMINOPHEN 5-325 MG TAB PO PRN (10:11)
== END 2021-08-28 16:19 | disposition home or self-care (01) ==
LOC: ED 22:19 → 4A 08-26 04:04
PROVIDERS: ADMIT Internal Medicine Geriatric Medicine; ATTEND Internal Medicine
DX: R00.0 Tachycardia, unspecified (principal); J45.909 Unspecified asthma, uncomplicated; R51.9 Headache, unspecified; F12.90 Cannabis use, unspecified, uncomplicated; Z79.899 Other long term (current) drug therapy; Z98.890 Other specified postprocedural states
CPT/HCPCS: 36415; 70450; 71275; 80048; 80053; 80307; 81001; 82550; 82553; 84439; 84443; 84484; 84703; 85025; 85379; 93005; 93306; 96361; 96372; 96374; 96375; 96376; 99285; G0378; J1644; J2060; J2405; J7030; Q9967; 85007; Q0162